=== PATIENT | female | born 1955 | race African-American/Black ===

== ENCOUNTER 2017-06-28 08:00 | Emergency (ER) | payer OTHER ==
[~2017-06-28] VITALS: Ht 165.1 cm; Wt 65.8 kg
[2017-06-28 08:05] VITALS: BP 187/95
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
[2017-06-28] MEDS ORDERED: CYCLOBENZAPRINE10 M1 PO (09:10)
== END 2017-06-28 09:38 ==
LOC: ERH 08:00
DX: S16.1XXA Strain of muscle, fascia and tendon at neck level, initial encounter (principal); S39.012A Strain of muscle, fascia and tendon of lower back, initial encounter; V49.40XA Driver injured in collision with unspecified motor vehicles in traffic accident, initial encounter; Y92.9 Unspecified place or not applicable